=== PATIENT | male | born 1965 | race Caucasian/White ===

== ENCOUNTER 2019-01-17 10:23 | Inpatient (IN) | payer OTHER ==
[~2019-01-17] VITALS: Ht 167.6 cm; Wt 97.4 kg
[2019-01-17] VITALS (28 sets, daily range): BP systolic 102–153; BP diastolic 50–98; PULSE 58–76; RESP 10–19; Ht 167.6 cm; Wt 97.4 kg
[~2019-01-17 10:23] MED LIST: CEFAZOLIN 1 GM INJ ONE; SEVOFLURANE 15 MIN ONE
[2019-01-17] MEDS ORDERED: SURGIFOAM POWDER 1 GM KIT ONE (11:59)
[2019-01-17] MEDS ORDERED: GELATIN SIZE 100 SPONGE ONE (12:00)
[2019-01-17] MEDS ORDERED: THROMBIN (BOVINE) 5,000 UNIT VIAL TP ONE (12:00)
[2019-01-17] MEDS ORDERED: POLYMYXIN/BACITRACIN 1L IRRIG ONE (12:00)
[2019-01-17] MEDS ORDERED: BUPIVACAINE 0.5%/EPI (SDV) 30 ML INJ ONE (12:00)
--- NOTE | 2019-01-17 12:26 | PREAC ---
Date/Time of Note Date/Time of Note DATE: 01/17/19 TIME: 12:24 Anesthesia Eval and Record Evaluation Time Pre-Procedure Interview DATE: 01/17/19 TIME: 12:24 Age 53 Sex male NPO: 8 hrs Preoperative diagnosis C6-7 HNP Planned procedure Anterior cervical discectomy and fusion Past Medical History Past Medical History: Includes GI: Obesity Surgery & Anesthesia Issues No known issue Meds Anticoagulation: No Beta Ashley within 24 hr: No Reason Beta Ashley not given: Pt. not on B-Ashley No Active Prescriptions or Reported Meds Meds reviewed: Yes Allergies Coded Allergies: bee venom protein (honey bee) (Verified Allergy, Unknown, RASH HIVES SWELLING, 01/17/19) morphine (Verified Adverse Reaction, Unknown, ANXIETY, AGGITATED, 01/17/19) Allergies Reviewed: Yes Labs/Studies Labs Reviewed: Reviewed by anesthesiologist test: N/A Pre-procedure Exam Last vitals Vital Signs Date Temp Pulse Resp B/P (MAP) Pulse Ox O2 O2 Flow FiO2 Time Delivery Rate 01/17/19 99.1 76 16 153/98 98 11:44 (116) Airway: Adequate mouth opening Mallampati: Mallampati II Teeth: Normal Lung: Normal Heart: Normal ASA Physical Status ASA physical status: 2 Emergency: None Planned Anesthetic General/MAC: ETT Planned Pain Management Parenteral pain med Pre-operative Attestations Prior to commencing anesthesia and surgery, the patient was re-evaluated, there was verification of: *The patient's identity *The results of appropriate recent lab work and preoperative vital signs *The above evaluation not changing prior to induction *Anesthetic plan, risk benefits, alternative and complications discussed with patient/family; questions answered; patient/family understands, accepts and wishes to proceed. CHAU CARTER MD Jan 17, 2019 12:26
[2019-01-17] MEDS ORDERED: ROCURONIUM 50 MG INJ ONE ×3 (12:33→13:27)
[2019-01-17] MEDS ORDERED: SUCCINYLCHOLINE CHLORIDE 100 MG/5 ML SYG IV ONE (12:33)
[2019-01-17] MEDS ORDERED: PROPOFOL 20 ML ONE (12:33)
[2019-01-17] MEDS ORDERED: LIDOCAINE 2% (SDV) 5 ML INJ ONE (12:33)
[2019-01-17] MEDS ORDERED: GLYCOPYRROLATE 0.4 MG INJ ONE ×3 (12:33→14:38)
[2019-01-17] MEDS ORDERED: NEOSTIGMINE 3 MG/3 ML SYRINGE ONE ×2 (12:33→14:38)
[2019-01-17] MEDS ORDERED: MEPERIDINE 100 MG INJ ONE (12:33)
--- NOTE | 2019-01-17 12:57 | HPN ---
Date/Time of Note Date/Time of Note DATE: 01/17/19 TIME: 12:56 Interval H&P Admission Note Pt. seen H&P reviewed: No system changes DOMINIC DELVALLE PA-C Jan 17, 2019 12:57
[2019-01-17] MEDS ORDERED: LABETALOL HCL 20MG INJ ONE (13:27)
[2019-01-17] MEDS ORDERED: POLYMYXIN/BACITRACIN 1L IRRIG IRR ONE (13:38)
[2019-01-17] MEDS ORDERED: LABETALOL HCL 20MG INJ IV PRN (14:00)
[2019-01-17] MEDS ORDERED: METOCLOPRAMIDE 10 MG INJ IV PRN (14:00)
[2019-01-17] MEDS ORDERED: MIDAZOLAM 1 MG/ML 2 ML INJ IV PRN (14:00)
[2019-01-17] MEDS ORDERED: DIPHENHYDRAMINE 50 MG INJ IV PRN ×2 (14:00→15:30)
[2019-01-17] MEDS ORDERED: hydrALAzine 20 MG INJ IV PRN (14:00)
[2019-01-17] MEDS ORDERED: HYDROmorphONE 1 MG/5 ML IV SYRINGE IV PRN ×2 (14:00)
[2019-01-17] MEDS ORDERED: ONDANSETRON 4 MG INJ IV PRN ×2 (14:00→15:30)
[2019-01-17] MEDS ORDERED: FENTAnyl 50 MCG/ML VIAL IV PRN ×3 (14:00)
[2019-01-17] MEDS ORDERED: EPHEDrine SULFATE 50 MG/5 ML SYG IV PRN (14:00)
[2019-01-17] MEDS ORDERED: MEPERIDINE 25 MG INJ IV PRN (14:00)
--- NOTE | 2019-01-17 15:04 | SIPON ---
Date/Time of Note Date/Time of Note DATE: 01/17/19 TIME: 15:03 Operative Report Preoperative Diagnosis C6-7 stenosis Postoperative Diagnosis C6-7 stenosis Operation/Procedure Performed C6-7 disc arthroplasty Surgeon see signature line assistant drafter Juana Khanna Anesthesia: general Estimated blood loss: 10 - 50 ml's Transfusion Required none Specimen C6-7 disc Grafts/Implants Synthes Prodisc cervical Complications none TED KAHN MD Jan 17, 2019 15:04
--- NOTE | 2019-01-17 15:29 | PAC ---
Date/Time of Note Date/Time of Note DATE: 01/17/19 TIME: 15:29 Post-Anesthesia Notes Post-Anesthesia Note Last documented vital signs Vital Signs Date Temp Pulse Resp B/P (MAP) Pulse Ox O2 O2 Flow FiO2 Time Delivery Rate 01/17/19 98.1 15:22 01/17/19 74 17 119/82 100 Mask 15:10 (94) Activity: WNL Respiratory function: WNL Cardiovascular function: WNL Mental status: Baseline Pain reasonably controlled: Yes Hydration appropriate: Yes Nausea/Vomiting absent: Yes CHAU CARTER MD Jan 17, 2019 15:29
[2019-01-17] MEDS ORDERED: ACETAMINOPHEN 325 MG TAB PO PRN (15:30)
[2019-01-17] MEDS ORDERED: CARISOPRODOL 350 MG TAB PO PRN (15:30)
[2019-01-17] MEDS ORDERED: NALOXONE (0.4 MG/ML) INJ IV PRN (15:30)
[2019-01-17] MEDS ORDERED: AL HYDROX/MG HYDROX/SIMETH 30 ML CUP PO PRN (15:30)
[2019-01-17] MEDS ORDERED: DIPHENHYDRAMINE 25 MG CAP PO PRN (15:30)
[2019-01-17] MEDS ORDERED: BISACODYL 10 MG SUPP PR PRN (15:30)
[2019-01-17] MEDS ORDERED: ZOLPIDEM 5 MG TAB PO PRN (15:30)
[2019-01-17] MEDS ORDERED: HYDROmorphONE 0.5 MG/0.5 ML SYG IV PRN (15:30)
[2019-01-17] MEDS: CEFAZOLIN 1 GM/50 ML (PMX) 50 ML IVPB SCH (15:40)
[2019-01-17] MEDS: HYDROmorphONE 1 MG/5 ML IV SYRINGE IV PRN ×2 (15:49→16:38)
--- NOTE | 2019-01-17 16:39 | OPR ---
DATE OF OPERATION: 01/17/2019 PREOPERATIVE DIAGNOSIS: Right C6 to C7 disk/osteophyte complex with cervical radiculopathy. POSTOPERATIVE DIAGNOSIS: Right C6 to C7 disk/osteophyte complex with cervical radiculopathy. PROCEDURES: 1. C6 to C7 anterior cervical diskectomy and spinal cord decompression. 2. C6 to C7 cervical disk arthroplasty. 3. Use of operative microscope. 4. Use of C-arm fluoroscopy interpretation without radiologist present. 5. Intraoperative neuromonitoring. IMPLANTS: Synthes ProDisc cervical 5 extra large deep. PRIMARY SURGEON: Johan Wilburn MD MANAGER TECHNICAL SERVICES: Juana Khanna PA-C NEED FOR CHANNEL SPECIALIST: During this spinal surgical procedure, my academic affairs assistant was used to retract and protect the spinal nerves and dural sac. My academic affairs assistant also employed the suction catheters to ev acuate blood from the surgical field to improve visualization of the neural structures. The assistan t was medically necessary to facilitate the completion of the surgery in a safe and expeditious [facility] r. [facility] regulations, as well as hospital bylaws, preclude the use of non-licensed [facility] care personnel, such as operating room technicians, to perform these functions. FINDINGS: Neuromonitoring at the start of the case revealed right C6 and C7 amplitude down 40%. At the end the case, nerve signals returned to normal. The patient had a right-sided disk/osteophyte co mplex resulting in severe stenosis. ESTIMATED BLOOD LOSS: Less than 30 mL. DRAINS: None. SPECIMENS: C6 to C7 disk. COMPLICATIONS OF PROCEDURES: None. ANESTHESIOLOGIST: David Berry MD TYPE OF ANESTHESIA: General. INDICATIONS FOR PROCEDURE: This is a 53-year-old gentleman with right cervical radiculopathy in sett ing of right-sided stenosis at the C6 to C7 level. He failed nonoperative measures; therefore, I rec ommended that he undergo the above procedure. Preoperatively, we discussed risks, benefits and alter natives. He understood and wished to proceed. DESCRIPTION OF PROCEDURE IN DETAIL: The patient was identified in the preoperative holding area, gi en Ancef antibiotic, taken to the operating room, where he was successfully placed under general anes thesia. Neuromonitoring leads were placed. Sequential compressive devices were applied. Remote int raoperative neuromonitoring was performed by Dr. Lr from 11:58 until 15:00 to include SSEP, ME P and EMG performed by [employer]. The patient was in supine position. Towel rolls were place d behind the neck and between the shoulder blades. Neck was prepped and draped in usual sterile fash ion. Left-sided neck incision was made. I then incised the platysma in line with the skin incision. I then identified an interval between the sternocleidomastoid and strap muscles. I identified the anterior spine. I placed a spinal needle and took a lateral film to confirm that I was at the C6 to C7 level. I then placed Blum pins and made an annulotomy and distracted the disk space. I then pe rformed a radical diskectomy at the C6 to C7 level. Microscope was brought in. The patient has larg e posterior osteophyte particularly on the right side and therefore I used Kerrison punches to decomp ress the spinal cord and neural foramina bilaterally. Once this was done, nerve signals returned to normal. I placed the appropriate size trials and found the appropriate size graft height. I made th e keel cuts. This was all done under the microscope. Once this was done, I placed the appropriate s ize graft and impacted this in. Once the graft was in place, I took AP and lateral images and I was happy with placement of the hardware and alignment of the spine. At this point, microscope was taken off the field. The Blum pins were removed and bone wax was placed. The wound was irrigated. Hem ostasis achieved. Wound was dry and therefore, I elected not to place a drain. I then proceeded to close the wound in layers. I closed the platysma with #2-0 Vicryl stitch. I closed subcutaneous tis nathen with a 3-0 Vicryl stitch. Dermabond was then applied. The patient was awakened from anesthesia and taken to the recovery room in stable condition. Lap, sponge and needle counts were correct x2. There are no apparent complications during the procedure. The patient will be admitted to the orthopedic barr for routine postoperative care to include pain co ntrol, neurovascular checks, antibiotics and physical therapy. Dictated By: JOHAN WILBURN MD BB/WILLY Conf#: [id number] DID#: [id number] CC: DUKE FLEMING MD;*EndCC*
[2019-01-17] MEDS: CEPASTAT LOZENGE MT PRN ×2 (17:54→20:25)
--- NOTE | 2019-01-17 18:23 | CONS ---
Assessment/Plan Assessment/Plan Assessment/Plan (Daily) Consult dictated Post op cx spine surgery with hx labile hypertension not requiring meds. Consultation Date/Type/Reason Admit Date/Time Jan 17, 2019 at 10:23 Date/Time of Note DATE: 01/17/19 TIME: 18:22 Past Medical History Home Meds No Active Prescriptions or Reported Meds Medications Current Medications Potassium Chloride/Dextrose/ Sod Cl 1,000 ml @ 100 mls/hr Q10H IV ; Start 01/17/19 at 15:05 Tramadol HCl (Ultram) 50 mg Q4H PRN PO .PAIN 1-5; Start 01/17/19 at 15:30 Tramadol HCl (Ultram) 100 mg Q4H PRN PO .PAIN 6-10; Start 01/17/19 at 15:30 Hydromorphone HCl (Dilaudid) 0.2 mg Q1H PRN IV .BREAKTHROUGH PAIN; Start 01/17/19 at 15:30 Cefazolin Sodium 50 ml @ 100 mls/hr Q8H IVPB Last administered on 01/17/19at 15:40; Admin Dose 100 MLS/HR; Start 01/17/19 at 15:30; Stop 01/18/19 at 07:59 Zolpidem Tartrate (Ambien) 5 mg HS PRN PO .INSOMNIA; Start 01/17/19 at 15:30 Ondansetron HCl (Zofran Inj) 4 mg Q6H PRN IV NAUSEA/VOMITING; Start 01/17/19 at 15:30 Bisacodyl (Dulcolax Supp) 10 mg DAILY PRN CA .CONSTIPATION; Start 01/17/19 at 15:30 Docusate Sodium (Colace) 100 mg BID PO ; Start 01/17/19 at 21:00 Pantoprazole (Protonix Iv) 40 mg DAILY@06 IV ; Start 01/18/19 at 06:00 Al Hydrox/Mg Hydrox/Simethicone (Mag-Al Plus) 15 ml Q6H PRN PO .CONSTIPATION/DYSPEPSIA; Start 01/17/19 at 15:30 Acetaminophen (Tylenol Tab) 650 mg Q4H PRN PO CANO OR TEMP GREATER THAN 101.3F; Start 01/17/19 at 15:30 Carisoprodol (Soma) 350 mg TID PRN PO .MUSCLE SPASMS; Start 01/17/19 at 15:30 Phenol (Cepastat Lozenge) 1 lozenge PRN PRN MT .SORE THROAT Last administered on 01/17/19at 17:54; Admin Dose 1 LOZENGE; Start 01/17/19 at 15:30 Diphenhydramine HCl (Benadryl) 25 mg Q6H PRN PO .ITCHING; Start 01/17/19 at 15:30 Diphenhydramine HCl (Benadryl) 25 mg Q6H PRN IV .ITCHING; Start 01/17/19 at 15:30 Naloxone HCl (Narcan) 0.2 mg Q2M PRN IV .RR 8 BREATHS/MIN OR LESS; Start 01/17/19 at 15:30 Allergies: Coded Allergies: bee venom protein (honey bee) (Verified Allergy, Unknown, RASH HIVES SWELLING, 01/17/19) morphine (Verified Adverse Reaction, Unknown, ANXIETY, AGGITATED, 01/17/19) Social History Smoking Status: Never smoker Exam/Review of Systems Exam Vitals Vital Signs Date Temp Pulse Resp B/P (MAP) Pulse Ox O2 O2 Flow FiO2 Time Delivery Rate 01/17/19 58 11 114/81 98 Room Air 16:51 (92) 01/17/19 98.1 16:31 01/17/19 2.0 16:01 Medications Medication Current Medications Potassium Chloride/Dextrose/ Sod Cl 1,000 ml @ 100 mls/hr Q10H IV ; Start 01/17/19 at 15:05 Tramadol HCl (Ultram) 50 mg Q4H PRN PO .PAIN 1-5; Start 01/17/19 at 15:30 Tramadol HCl (Ultram) 100 mg Q4H PRN PO .PAIN 6-10; Start 01/17/19 at 15:30 Hydromorphone HCl (Dilaudid) 0.2 mg Q1H PRN IV .BREAKTHROUGH PAIN; Start 01/17/19 at 15:30 Cefazolin Sodium 50 ml @ 100 mls/hr Q8H IVPB Last administered on 01/17/19at 15:40; Admin Dose 100 MLS/HR; Start 01/17/19 at 15:30; Stop 01/18/19 at 07:59 Zolpidem Tartrate (Ambien) 5 mg HS PRN PO .INSOMNIA; Start 01/17/19 at 15:30 Ondansetron HCl (Zofran Inj) 4 mg Q6H PRN IV NAUSEA/VOMITING; Start 01/17/19 at 15:30 Bisacodyl (Dulcolax Supp) 10 mg DAILY PRN CA .CONSTIPATION; Start 01/17/19 at 15:30 Docusate Sodium (Colace) 100 mg BID PO ; Start 01/17/19 at 21:00 Pantoprazole (Protonix Iv) 40 mg DAILY@06 IV ; Start 01/18/19 at 06:00 Al Hydrox/Mg Hydrox/Simethicone (Mag-Al Plus) 15 ml Q6H PRN PO .CONSTIPATION/DYSPEPSIA; Start 01/17/19 at 15:30 Acetaminophen (Tylenol Tab) 650 mg Q4H PRN PO CANO OR TEMP GREATER THAN 101.3F; Start 01/17/19 at 15:30 Carisoprodol (Soma) 350 mg TID PRN PO .MUSCLE SPASMS; Start 01/17/19 at 15:30 Phenol (Cepastat Lozenge) 1 lozenge PRN PRN MT .SORE THROAT Last administered on 01/17/19at 17:54; Admin Dose 1 LOZENGE; Start 01/17/19 at 15:30 Diphenhydramine HCl (Benadryl) 25 mg Q6H PRN PO .ITCHING; Start 01/17/19 at 15:30 Diphenhydramine HCl (Benadryl) 25 mg Q6H PRN IV .ITCHING; Start 01/17/19 at 15:30 Naloxone HCl (Narcan) 0.2 mg Q2M PRN IV .RR 8 BREATHS/MIN OR LESS; Start 01/17/19 at 15:30 DUKE FLEMING MD Jan 17, 2019 18:23
--- NOTE | 2019-01-17 19:54 | CONS ---
DATE OF ADMISSION: 01/17/2019 DATE OF CONSULTATION: 01/17/2019 TYPE OF CONSULTATION: Postoperative medical. Thank you very much for allowing me to evaluate this 53-year-old male who just underwent cervical spi ne decompression. HISTORICAL EVENTS: As you well know, this patient has had pain related to cervical spine degenerativ e arthritis and related nerve compression and underwent surgery earlier today. Postoperatively, he h as had some mild difficulty swallowing, admits to a slight sore throat, but denies cough, wheezing, s hortness of breath, chest pain, nausea, vomiting or abdominal pain. PAST MEDICAL HISTORY: Includes: 1. Fracture of the radius and ulna requiring surgery. 2. Left shoulder arthroscopic surgery. 3. Prior tonsillectomy. 4. Absence of diabetes, hypertension and coronary artery disease. 5. Labile hypertension. ALLERGIES: TO BE REVIEWED. MEDICATIONS: None. PHYSICAL EXAMINATION: GENERAL: [place] male in no acute distress. VITAL SIGNS: BP 128/80, pulse 72, respirations 20, he was afebrile. HEENT: Eyes: Extraocular muscles were full. Nose, mouth and throat are normal. NECK: Scar noted. No adenopathy. LUNGS: Clear. HEART: Rhythm was regular. ABDOMEN: Nontender. Liver and spleen were not palpable. EXTREMITIES: No edema, no calf tenderness. IMPRESSION: 1. Stable postoperative cervical spine surgery. 2. We will follow daily for signs and symptoms of thromboembolic disease. Dictated By: DUKE FLEMING MD MR/NTS Conf#: [id number] DID#: [id number] CC: TED KAHN MD;*EndCC*
[2019-01-17] MEDS: D5W-0.45 NACL + KCL 20 MEQ 1,000 ML IV SCH (20:19)
[2019-01-17] MEDS: DOCUSATE SODIUM 100 MG CAP PO SCH (20:21)
[2019-01-17] MEDS: traMADol 50 MG TAB PO PRN (20:25)
[2019-01-18] MEDS: CEFAZOLIN 1 GM/50 ML (PMX) 50 ML IVPB SCH ×2 (00:01→08:17)
[2019-01-18] MEDS: D5W-0.45 NACL + KCL 20 MEQ 1,000 ML IV SCH ×3 (01:05→20:07)
[2019-01-18] MEDS: traMADol 50 MG TAB PO PRN ×2 (05:58→22:05)
[2019-01-18] MEDS ORDERED: PANTOPRAZOLE 40 MG INJ IV SCH (06:00)
[2019-01-18 08:00] VITALS: BP 130/95; PULSE 86; RESP 18
--- NOTE | 2019-01-18 08:46 | CONS ---
Assessment/Plan Assessment/Plan Assessment/Plan (Daily) 1. Doing well post op cervical spine surgery 2. Sl diff voiding, will check post void residual 3. BP inc, will add catapres Consultation Date/Type/Reason Admit Date/Time Jan 17, 2019 at 10:23 Initial Consult Date Date/Time of Note DATE: 01/18/19 TIME: 08:44 Detailed Summary ENT: other (sl diff swallowing, neck is "sore") Respiratory: shortness of breath; No cough Cardiovascular: no complaints Gastrointestinal: no complaints Genitourinary: other (sl diff voiding without dysuria) Exam/Review of Systems Exam Vitals Vital Signs Date Temp Pulse Resp B/P (MAP) Pulse Ox O2 O2 Flow FiO2 Time Delivery Rate 01/17/19 98.3 69 19 147/91 96 Room Air 23:51 (109) 01/17/19 2.0 16:01 Intake and Output 01/17/19 01/17/19 01/18/19 1515:00 23:00 07:00 IntakeIntake Total 940 ml 850 ml OutputOutput Total 20 ml BalanceBalance 920 ml 850 ml Neck: No jvd Respiratory: clear to auscultation Cardiovascular: regular rate and rhythm Gastrointestinal: soft; No distended, No tender Extremities: No edema Results Result Diagram: 01/18/19 0443 01/18/19 0443 Results 24hrs Laboratory Tests Test 01/18/19 04:43 01/18/19 07:32 White Blood Count 9.3 Red Blood Count 4.49 L Hemoglobin 15.0 Hematocrit 43.1 Mean Corpuscular Volume 96.0 Mean Corpuscular Hemoglobin 33.4 H Mean Corpuscular Hemoglobin Concent 34.8 Red Cell Distribution Width 11.6 Platelet Count 259 Mean Platelet Volume 10.1 Immature Granulocytes % 0.400 Neutrophils % 64.4 Lymphocytes % 24.1 Monocytes % 10.7 Eosinophils % 0.1 Basophils % 0.3 Nucleated Red Blood Cells % 0.0 Immature Granulocytes # 0.040 H Neutrophils # 6.0 Lymphocytes # 2.2 Monocytes # 1.0 H Eosinophils # 0.0 Basophils # 0.0 Nucleated Red Blood Cells # 0.0 Sodium Level 138 Potassium Level 4.6 Chloride Level 103 Carbon Dioxide Level 26 Anion Gap 9 Blood Urea Nitrogen 9 Creatinine 0.91 Est Glomerular Filtrat Rate mL/min > 60 Glucose Level 117 Calcium Level 8.9 Magnesium Level 2.0 Lab Scanned Report REFERENCE LAB Medications Medication Current Medications Potassium Chloride/Dextrose/ Sod Cl 1,000 ml @ 100 mls/hr Q10H IV Last administered on 01/18/19at 08:17; Admin Dose 100 MLS/HR; Start 01/17/19 at 15:05 Tramadol HCl (Ultram) 50 mg Q4H PRN PO .PAIN 1-5; Start 01/17/19 at 15:30 Tramadol HCl (Ultram) 100 mg Q4H PRN PO .PAIN 6-10 Last administered on 01/18/19at 05:58; Admin Dose 100 MG; Start 01/17/19 at 15:30 Hydromorphone HCl (Dilaudid) 0.2 mg Q1H PRN IV .BREAKTHROUGH PAIN; Start 01/17/19 at 15:30 Zolpidem Tartrate (Ambien) 5 mg HS PRN PO .INSOMNIA; Start 01/17/19 at 15:30 Ondansetron HCl (Zofran Inj) 4 mg Q6H PRN IV NAUSEA/VOMITING; Start 01/17/19 at 15:30 Bisacodyl (Dulcolax Supp) 10 mg DAILY PRN NE .CONSTIPATION; Start 01/17/19 at 15:30 Docusate Sodium (Colace) 100 mg BID PO Last administered on 01/17/19at 20:21; Admin Dose 100 MG; Start 01/17/19 at 21:00 Pantoprazole (Protonix Iv) 40 mg DAILY@06 IV Last administered on 01/18/19at 05:50; Admin Dose 40 MG; Start 01/18/19 at 06:00 Al Hydrox/Mg Hydrox/Simethicone (Mag-Al Plus) 15 ml Q6H PRN PO .CONSTIPATION/DYSPEPSIA; Start 01/17/19 at 15:30 Acetaminophen (Tylenol Tab) 650 mg Q4H PRN PO CANO OR TEMP GREATER THAN 101.3F; Start 01/17/19 at 15:30 Carisoprodol (Soma) 350 mg TID PRN PO .MUSCLE SPASMS Last administered on 01/17/19at 20:20; Admin Dose 350 MG; Start 01/17/19 at 15:30 Phenol (Cepastat Lozenge) 1 lozenge PRN PRN MT .SORE THROAT Last administered on 01/17/19at 20:25; Admin Dose 1 LOZENGE; Start 01/17/19 at 15:30 Diphenhydramine HCl (Benadryl) 25 mg Q6H PRN PO .ITCHING; Start 01/17/19 at 15:30 Diphenhydramine HCl (Benadryl) 25 mg Q6H PRN IV .ITCHING; Start 01/17/19 at 15:30 Naloxone HCl (Narcan) 0.2 mg Q2M PRN IV .RR 8 BREATHS/MIN OR LESS; Start 01/17/19 at 15:30 DUKE FLEMING MD Jan 18, 2019 08:46
[2019-01-18] MEDS: DOCUSATE SODIUM 100 MG CAP PO SCH ×2 (09:42→20:06)
[2019-01-18] MEDS ORDERED: TAMSULOSIN (SR) 0.4 MG CAP PO ONE (10:00)
--- NOTE | 2019-01-18 12:38 | DS ---
Date/Time of Note Date/Time of Note DATE: 01/18/19 TIME: 12:37 Discharge Summary Admission/Discharge Info Admit Date/Time Jan 17, 2019 at 10:23 Discharge Date/Time January 18 Discharge Diagnosis Cervical disc replacement Patient Condition: Good Procedures Cervical disc arthroplasty Hospital Course Patient was admitted to the orthopedic barr after undergoing a cervical disc arthroplasty. His postoperative course is uncomplicated. By postoperative day 1 he was deemed stable for discharge with follow-up arranged with the undersigned. Patient had urinary issues in the hospital which is unchanged from prior to admission. Home Meds No Active Prescriptions or Reported Meds Primary Care Provider Not On Staff Doctor Pending Labs Laboratory Tests Test 01/18/19 04:43 01/18/19 07:32 White Blood Count 9.3 10^3/ul (4.8-10.8) Red Blood Count 4.49 10^6/ul (4.70-6.10) Hemoglobin 15.0 g/dl (14.0-18.0) Hematocrit 43.1 % (42.0-52.0) Mean Corpuscular Volume 96.0 fl (82.0-101.0) Mean Corpuscular Hemoglobin 33.4 pg (29.0-33.0) Mean Corpuscular 34.8 g/dl (32.0-37.0) Hemoglobin Concent Red Cell Distribution Width 11.6 % (11.5-14.5) Platelet Count 259 10^3/UL (140-415) Mean Platelet Volume 10.1 fl (7.4-10.4) Immature Granulocytes % 0.400 % (0.001-0.429) Neutrophils % 64.4 % (39.0-77.0) Lymphocytes % 24.1 % (15.0-51.0) Monocytes % 10.7 % (0.0-11.0) Eosinophils % 0.1 % (0.0-7.0) Basophils % 0.3 % (0.0-2.0) Nucleated Red Blood Cells % 0.0 /100WBC (0.0-0.0) Immature Granulocytes # 0.040 10^3/ul (0.0-0.031) Neutrophils # 6.0 10^3/ul (1.6-7.5) Lymphocytes # 2.2 10^3/ul (0.8-2.9) Monocytes # 1.0 10^3/ul (0.3-0.9) Eosinophils # 0.0 10^3/ul (0.0-0.5) Basophils # 0.0 10^3/ul (0.0-0.1) Nucleated Red Blood Cells # 0.0 10^3/ul (0.0-0.0) Sodium Level 138 mmol/L (135-144) Potassium Level 4.6 mmol/L (3.5-5.1) Chloride Level 103 mmol/L (97-110) Carbon Dioxide Level 26 mmol/L (21-31) Anion Gap 9 (5-13) Blood Urea Nitrogen 9 mg/dl (7-20) Creatinine 0.91 mg/dl (0.61-1.24) Est Glomerular Filtrat > 60 mL/min (>60) Rate mL/min Glucose Level 117 mg/dl (70-220) Calcium Level 8.9 mg/dl (8.4-10.2) Magnesium Level 2.0 mg/dl (1.7-2.5) Lab Scanned Report REFERENCE LAB [id number] TED KAHN MD Jan 18, 2019 12:38
[2019-01-18 13:20] VITALS: BP 126/80; PULSE 110; RESP 18
[2019-01-18 19:36] VITALS: BP 125/70; PULSE 92; RESP 18
[2019-01-18 20:24] VITALS: BP 125/83; PULSE 103; RESP 18
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
[2019-01-19] MEDS: PANTOPRAZOLE (EC) 40 MG TAB PO SCH (05:13)
[2019-01-19] MEDS: D5W-0.45 NACL + KCL 20 MEQ 1,000 ML IV SCH ×2 (05:39→17:05)
[2019-01-19 07:37] VITALS: BP 113/62; PULSE 82; RESP 18
--- NOTE | 2019-01-19 08:16 | CONS ---
Assessment/Plan Assessment/Plan Assessment/Plan (Daily) 1. Bladder dysfx, await urol follow up, with residual volumes >600cc, PSA added to labs. 2. Post op cx spine surgery, doing well 3. Labs rev Consultation Date/Type/Reason Admit Date/Time Jan 17, 2019 at 10:23 Initial Consult Date Requesting Provider: DUKE FLEMING MD Date/Time of Note DATE: 01/19/19 TIME: 08:14 Detailed Summary Respiratory: cough, shortness of breath Cardiovascular: No chest pain Musculoskeletal: neck pain (mild without diff swallowing), other (prior to admit freq urination at times small volumes and min nocturia without back pain) Exam/Review of Systems Exam Vitals Vital Signs Date Temp Pulse Resp B/P (MAP) Pulse Ox O2 O2 Flow FiO2 Time Delivery Rate 01/19/19 99.5 82 18 113/62 100 Room Air 07:37 (79) 01/17/19 2.0 16:01 Intake and Output 01/18/19 01/18/19 01/19/19 1515:00 23:00 07:00 IntakeIntake Total 570 ml 1250 ml 200 ml OutputOutput Total 850 ml 600 ml BalanceBalance 570 ml 400 ml -400 ml Neck: No jvd Respiratory: clear to auscultation Cardiovascular: regular rate and rhythm Gastrointestinal: soft Extremities: No edema Results Result Diagram: 01/19/19 0435 01/19/19 0435 Results 24hrs Laboratory Tests Test 01/18/19 16:15 01/19/19 04:35 Urine Color YELLOW Urine Clarity CLEAR Urine pH 5.0 Urine Specific [place] 1.013 Urine Ketones NEGATIVE Urine Nitrite NEGATIVE Urine Bilirubin NEGATIVE Urine Urobilinogen NEGATIVE Urine Leukocyte Esterase NEGATIVE Urine Hemoglobin NEGATIVE Urine Glucose NEGATIVE Urine Total Protein NEGATIVE White Blood Count 9.1 Red Blood Count 4.13 L Hemoglobin 13.8 L Hematocrit 40.0 L Mean Corpuscular Volume 96.9 Mean Corpuscular Hemoglobin 33.4 H Mean Corpuscular Hemoglobin Concent 34.5 Red Cell Distribution Width 11.6 Platelet Count 233 Mean Platelet Volume 9.9 Immature Granulocytes % 0.400 Neutrophils % 50.1 Lymphocytes % 35.2 Monocytes % 13.3 H Eosinophils % 0.7 Basophils % 0.3 Nucleated Red Blood Cells % 0.0 Immature Granulocytes # 0.040 H Neutrophils # 4.6 Lymphocytes # 3.2 H Monocytes # 1.2 H Eosinophils # 0.1 Basophils # 0.0 Nucleated Red Blood Cells # 0.0 Sodium Level 137 Potassium Level 4.3 Chloride Level 102 Carbon Dioxide Level 26 Anion Gap 9 Blood Urea Nitrogen 12 Creatinine 1.01 Est Glomerular Filtrat Rate mL/min > 60 Glucose Level 108 Calcium Level 8.7 Phosphorus Level 3.2 Magnesium Level 2.2 Medications Medication Current Medications Potassium Chloride/Dextrose/ Sod Cl 1,000 ml @ 100 mls/hr Q10H IV Last administered on 01/18/19at 08:17; Admin Dose 100 MLS/HR; Start 01/17/19 at 15:05 Tramadol HCl (Ultram) 50 mg Q4H PRN PO .PAIN 1-5; Start 01/17/19 at 15:30 Tramadol HCl (Ultram) 100 mg Q4H PRN PO .PAIN 6-10 Last administered on 01/18/19at 22:05; Admin Dose 100 MG; Start 01/17/19 at 15:30 Hydromorphone HCl (Dilaudid) 0.2 mg Q1H PRN IV .BREAKTHROUGH PAIN; Start 01/17/19 at 15:30 Zolpidem Tartrate (Ambien) 5 mg HS PRN PO .INSOMNIA; Start 01/17/19 at 15:30 Ondansetron HCl (Zofran Inj) 4 mg Q6H PRN IV NAUSEA/VOMITING; Start 01/17/19 at 15:30 Bisacodyl (Dulcolax Supp) 10 mg DAILY PRN [place] .CONSTIPATION; Start 01/17/19 at 15:30 Docusate Sodium (Colace) 100 mg BID PO Last administered on 01/18/19at 20:06; Admin Dose 100 MG; Start 01/17/19 at 21:00 Al Hydrox/Mg Hydrox/Simethicone (Mag-Al Plus) 15 ml Q6H PRN PO .CONSTIPATION/DYSPEPSIA; Start 01/17/19 at 15:30 Acetaminophen (Tylenol Tab) 650 mg Q4H PRN PO CANO OR TEMP GREATER THAN 101.3F; Start 01/17/19 at 15:30 Carisoprodol (Soma) 350 mg TID PRN PO .MUSCLE SPASMS Last administered on 01/17/19at 20:20; Admin Dose 350 MG; Start 01/17/19 at 15:30 Phenol (Cepastat Lozenge) 1 lozenge PRN PRN [place] .SORE THROAT Last administered on 01/17/19at 20:25; Admin Dose 1 LOZENGE; Start 01/17/19 at 15:30 Diphenhydramine HCl (Benadryl) 25 mg Q6H PRN PO .ITCHING; Start 01/17/19 at 15:30 Diphenhydramine HCl (Benadryl) 25 mg Q6H PRN IV .ITCHING; Start 01/17/19 at 15:30 Naloxone HCl (Narcan) 0.2 mg Q2M PRN IV .RR 8 BREATHS/MIN OR LESS; Start 01/17/19 at 15:30 Clonidine (Catapres) 0.1 mg TID PO Last administered on 01/18/19at 20:06; Admin Dose 0.1 MG; Start 01/18/19 at 09:30 Pantoprazole (Protonix Tab) 40 mg DAILY@06 PO ; Start 01/19/19 at 06:00 Bethanechol Chloride (Urecholine) 10 mg TID PO ; Start 01/19/19 at 09:00 DUKE FLEMING MD Jan 19, 2019 08:16
[2019-01-19] MEDS: BETHANECHOL 10 MG TAB PO SCH ×3 (08:19→20:37)
[2019-01-19] MEDS: DOCUSATE SODIUM 100 MG CAP PO SCH ×2 (08:19→20:37)
[2019-01-19] MEDS: traMADol 50 MG TAB PO PRN ×2 (08:23→20:37)
--- NOTE | 2019-01-19 09:48 | PN ---
Date/Time of Note Date/Time of Note DATE: 01/19/19 TIME: 09:47 Assessment/Plan Lines/Catheters IV Catheter Type (from Nrsg): Saline Lock Assessment/Plan Assessment/Plan POD #2 s/p cervical disc replacement order cervical collar was not discharged due to urinary retention - per urologist Subjective 24 Hr Interval Summary POD #2 s/p cervical disc replacement doing well - notes improvement in neck pain stable for D/C from ortho perspective cannot be D/C due to urinary issues Exam/Review of Systems Vital Signs Vitals Vital Signs Date Temp Pulse Resp B/P (MAP) Pulse Ox O2 O2 Flow FiO2 Time Delivery Rate 01/19/19 99.5 82 18 113/62 100 Room Air 07:37 (79) 01/17/19 2.0 16:01 Intake and Output 01/18/19 01/18/19 01/19/19 1515:00 23:00 07:00 IntakeIntake Total 570 ml 1250 ml 200 ml OutputOutput Total 850 ml 600 ml BalanceBalance 570 ml 400 ml -400 ml Exam Free Text/Dictation AOx3 incision C/D/I exam unchanged Results Result Diagram: 01/19/19 0435 01/19/19 0435 DOMINIC DELVALLE PA-C Jan 19, 2019 09:48
[2019-01-19 14:14] VITALS: BP 110/70; PULSE 77; RESP 18
[2019-01-19 19:15] VITALS: BP 143/77; PULSE 89; RESP 18
--- NOTE | 2019-01-19 20:52 | CONS ---
Consult Date/Type/Reason Admit Date/Time Jan 17, 2019 at 10:23 Initial Consult Date 01/18/19 Type of Consultation: Urology Reason for Consultation Urinary retention Requesting Provider: DUKE FLEMING MD Date/Time of Note DATE: 01/19/19 TIME: 20:48 Subjective Patient is feeling better. He has ambulated more today and he is voiding better with a stronger stream. Objective Vitals Vital Signs Date Temp Pulse Resp B/P (MAP) Pulse Ox O2 O2 Flow FiO2 Time Delivery Rate 01/19/19 98.0 77 18 110/70 99 Room Air 14:14 (83) 01/17/19 2.0 16:01 Intake and Output 01/18/19 01/18/19 01/19/19 1515:00 23:00 07:00 IntakeIntake Total 570 ml 1250 ml 200 ml OutputOutput Total 850 ml 600 ml BalanceBalance 570 ml 400 ml -400 ml Exam He was voiding 150-300 mL. He needed to be catheterized one around 2 PM today. About 550 mL drained out. He has been voiding after that between 150-200 mL and the postvoid residual has been less than 300 mL therefore no straight catheterization has been done. He is on Urecholine 10 mg 3 times a day. Results/Medications Result Diagram: 01/19/19 0435 01/19/19 0435 Results 24 hrs Laboratory Tests Test 01/19/19 04:31 01/19/19 04:35 Prostate Specific Antigen 0.4 White Blood Count 9.1 Red Blood Count 4.13 L Hemoglobin 13.8 L Hematocrit 40.0 L Mean Corpuscular Volume 96.9 Mean Corpuscular Hemoglobin 33.4 H Mean Corpuscular Hemoglobin Concent 34.5 Red Cell Distribution Width 11.6 Platelet Count 233 Mean Platelet Volume 9.9 Immature Granulocytes % 0.400 Neutrophils % 50.1 Lymphocytes % 35.2 Monocytes % 13.3 H Eosinophils % 0.7 Basophils % 0.3 Nucleated Red Blood Cells % 0.0 Immature Granulocytes # 0.040 H Neutrophils # 4.6 Lymphocytes # 3.2 H Monocytes # 1.2 H Eosinophils # 0.1 Basophils # 0.0 Nucleated Red Blood Cells # 0.0 Sodium Level 137 Potassium Level 4.3 Chloride Level 102 Carbon Dioxide Level 26 Anion Gap 9 Blood Urea Nitrogen 12 Creatinine 1.01 Est Glomerular Filtrat Rate mL/min > 60 Glucose Level 108 Calcium Level 8.7 Phosphorus Level 3.2 Magnesium Level 2.2 Home Meds No Active Prescriptions or Reported Meds Medications Current Medications Potassium Chloride/Dextrose/ Sod Cl 1,000 ml @ 100 mls/hr Q10H IV Last administered on 01/18/19 08:17; Admin Dose 100 MLS/HR; Start 01/17/19 at 15:05 Tramadol HCl (Ultram) 50 mg Q4H PRN PO .PAIN 1-5 Last administered on 01/19/19 20:37; Admin Dose 50 MG; Start 01/17/19 at 15:30 Tramadol HCl (Ultram) 100 mg Q4H PRN PO .PAIN 6-10 Last administered on 01/19/19 08:23; Admin Dose 100 MG; Start 01/17/19 at 15:30 Hydromorphone HCl (Dilaudid) 0.2 mg Q1H PRN IV .BREAKTHROUGH PAIN; Start 01/17/19 at 15:30 Zolpidem Tartrate (Ambien) 5 mg HS PRN PO .INSOMNIA; Start 01/17/19 at 15:30 Ondansetron HCl (Zofran Inj) 4 mg Q6H PRN IV NAUSEA/VOMITING; Start 01/17/19 at 15:30 Bisacodyl (Dulcolax Supp) 10 mg DAILY PRN [place] .CONSTIPATION; Start 01/17/19 at 15:30 Docusate Sodium (Colace) 100 mg BID PO Last administered on 01/19/19 20:37; Admin Dose 100 MG; Start 01/17/19 at 21:00 Al Hydrox/Mg Hydrox/Simethicone (Mag-Al Plus) 15 ml Q6H PRN PO .CONST IPATION/DYSPEPSIA; Start 01/17/19 at 15:30 Acetaminophen (Tylenol Tab) 650 mg Q4H PRN PO CANO OR TEMP GREATER THAN 101.3F; Start 01/17/19 at 15:30 Carisoprodol (Soma) 350 mg TID PRN PO .MUSCLE SPASMS Last administered on 01/17/19 20:20; Admin Dose 350 MG; Start 01/17/19 at 15:30 Phenol (Cepastat Lozenge) 1 lozenge PRN PRN [place] .SORE THROAT Last administered on 4/1/19at 20:25; Admin Dose 1 LOZENGE; Start 01/17/19 at 15:30 Diphenhydramine HCl (Benadryl) 25 mg Q6H PRN PO .ITCHING; Start 01/17/19 at 15:3 0 Diphenhydramine HCl (Benadryl) 25 mg Q6H PRN IV .ITCHING; Start 01/17/19 at 15:30 Naloxone HCl (Narcan) 0.2 mg Q2M PRN IV .RR 8 BREATHS/MIN OR LESS; Start 01/17/19 at 15:30 Clonidine (Catapres) 0.1 mg TID PO Last administered on 01/19/19at 20:37; Admin Dose 0.1 MG; Start 01/18/19 at 09:30 Pantoprazole (Protonix Tab) 40 mg DAILY@06 PO ; Start 01/19/19 at 06:00 Bethanechol Chloride (Urecholine) 10 mg TID PO Last administered on 01/19/19at 20:37; Admin Dose 10 MG; Start 01/19/19 at 09:00 Assessment/Plan Hospital Course (Demo Recall) 53-year-old male underwent surgery on his cervical spine on 01/17/2019. He was having difficulty urinating postop and this afternoon he was catheterized for about 650 mL. And a urological consultation was requested. The patient has voided twice after that but small amount ,about 150 mL each time. The patient was given 1 dose of tamsulosin earlier. He states prior to his surgery he usually has nocturia once a night and during the day he urinates every 4-5 hours. His urinary stream is medium. He denies any dysuria and no history of gross hematuria and he usually feels he does empty his bladder. I did check his postvoid residual and he had over 550 mL and then I did straight cath on him and 700 mL drained. On the rectal exam his prostate did not feel large. His urinary retention is most likely secondary to be postop effect of pain medication and anesthesia as well as could be from his neurological condition. Patient has been voiding better today and required once straight catheterization around 2 PM. After that he has been voiding 150-200 mL each time and he describes his urinary stream as strong. I will increase his Urecholine to 25 mg 3 times a day from 10 mg. MARYAM CALIX MD Jan 19, 2019 20:52
[2019-01-19] MEDS: BETHANECHOL 25 MG TAB PO SCH (21:52)
[2019-01-20 00:27] VITALS: BP 115/67; PULSE 73; RESP 18
[2019-01-20] MEDS: D5W-0.45 NACL + KCL 20 MEQ 1,000 ML IV SCH (02:18)
[2019-01-20] MEDS: PANTOPRAZOLE (EC) 40 MG TAB PO SCH (06:19)
[2019-01-20] MEDS: traMADol 50 MG TAB PO PRN (06:24)
--- NOTE | 2019-01-20 07:50 | PN ---
Date/Time of Note Date/Time of Note DATE: 01/20/19 TIME: 07:50 Assessment/Plan Lines/Catheters IV Catheter Type (from Nrsg): no iv access Angel in Place (from Nrsg): No Assessment/Plan Chief Complaint/Hosp Course Patient was admitted to the orthopedic barr after undergoing a cervical disc arthroplasty. His postoperative course is uncomplicated. By postoperative day 1 he was deemed stable for discharge with follow-up arranged with the undersigned. Patient had urinary issues in the hospital which is unchanged from prior to admission. Assessment/Plan Patient is doing well from a surgical standpoint. We are still awaiting for urology clearance for discharge. Subjective 24 Hr Interval Summary Minimal neck pain Exam/Review of Systems Vital Signs Vitals Vital Signs Date Temp Pulse Resp B/P (MAP) Pulse Ox O2 O2 Flow FiO2 Time Delivery Rate 01/20/19 98.0 73 18 115/67 93 00:27 (83) 01/19/19 Room Air 14:14 01/17/19 2.0 16:01 Intake and Output 01/19/19 01/19/19 01/20/19 1515:00 23:00 07:00 IntakeIntake Total 1200 ml 2650 ml 350 ml OutputOutput Total 1350 ml 2856 ml 1518 ml BalanceBalance -150 ml -206 ml -1168 ml Exam Free Text/Dictation Upper extremity neuro intact Results Result Diagram: 01/19/19 0435 01/19/19 0435 TED KAHN MD Jan 20, 2019 07:50
--- NOTE | 2019-01-20 08:08 | CONS ---
Assessment/Plan Assessment/Plan Assessment/Plan (Daily) 1. Bladder dysfx is better, with post void residuals<200 cc, I left rx for flomax and urecholine in the chart. Urol to make final rec and follow as OP and ordered flomax today 2. Doing well post op cx spine surgery, rev with ortho Consultation Date/Type/Reason Admit Date/Time Jan 17, 2019 at 10:23 Initial Consult Date Requesting Provider: DUKE FLEMING MD Date/Time of Note DATE: 01/20/19 TIME: 08:05 Detailed Summary ENT: other (sl sore throat and diff swallowing) Respiratory: No cough, No shortness of breath Cardiovascular: no complaints Gastrointestinal: no complaints Genitourinary: other (stream is slow) Exam/Review of Systems Exam Vitals Vital Signs Date Temp Pulse Resp B/P (MAP) Pulse Ox O2 O2 Flow FiO2 Time Delivery Rate 01/20/19 98.0 73 18 115/67 93 00:27 (83) 01/19/19 Room Air 14:14 01/17/19 2.0 16:01 Intake and Output 01/19/19 01/19/19 01/20/19 1515:00 23:00 07:00 IntakeIntake Total 1200 ml 2650 ml 350 ml OutputOutput Total 1350 ml 2856 ml 1518 ml BalanceBalance -150 ml -206 ml -1168 ml Neck: No jvd Respiratory: clear to auscultation Cardiovascular: regular rate and rhythm Gastrointestinal: soft Extremities: No edema Results Result Diagram: 01/19/19 0435 01/19/19 0435 Medications Medication Current Medications Potassium Chloride/Dextrose/ Sod Cl 1,000 ml @ 100 mls/hr Q10H IV Last administered on 01/18/19at 08:17; Admin Dose 100 MLS/HR; Start 01/17/19 at 15:05 Tramadol HCl (Ultram) 50 mg Q4H PRN PO .PAIN 1-5 Last administered on 01/20/19at 06:24; Admin Dose 50 MG; Start 01/17/19 at 15:30 Tramadol HCl (Ultram) 100 mg Q4H PRN PO .PAIN 6-10 Last administered on 01/19/19at 08:23; Admin Dose 100 MG; Start 01/17/19 at 15:30 Hydromorphone HCl (Dilaudid) 0.2 mg Q1H PRN IV .BREAKTHROUGH PAIN; Start 01/17/19 at 15:30 Zolpidem Tartrate (Ambien) 5 mg HS PRN PO .INSOMNIA; Start 01/17/19 at 15:30 Ondansetron HCl (Zofran Inj) 4 mg Q6H PRN IV NAUSEA/VOMITING; Start 01/17/19 at 15:30 Bisacodyl (Dulcolax Supp) 10 mg DAILY PRN [place] .CONSTIPATION; Start 01/17/19 at 15:30 Docusate Sodium (Colace) 100 mg BID PO Last administered on 01/19/19at 20:37; Admin Dose 100 MG; Start 01/17/19 at 21:00 Al Hydrox/Mg Hydrox/Simethicone (Mag-Al Plus) 15 ml Q6H PRN PO .CONSTIPATION/DYSPEPSIA; Start 01/17/19 at 15:30 Acetaminophen (Tylenol Tab) 650 mg Q4H PRN PO CANO OR TEMP GREATER THAN 101.3F; Start 01/17/19 at 15:30 Carisoprodol (Soma) 350 mg TID PRN PO .MUSCLE SPASMS Last administered on 01/17/19at 20:20; Admin Dose 350 MG; Start 01/17/19 at 15:30 Phenol (Cepastat Lozenge) 1 lozenge PRN PRN [place] .SORE THROAT Last administered on 01/17/19at 20:25; Admin Dose 1 LOZENGE; Start 01/17/19 at 15:30 Diphenhydramine HCl (Benadryl) 25 mg Q6H PRN PO .ITCHING; Start 01/17/19 at 15:30 Diphenhydramine HCl (Benadryl) 25 mg Q6H PRN IV .ITCHING; Start 01/17/19 at 15:30 Naloxone HCl (Narcan) 0.2 mg Q2M PRN IV .RR 8 BREATHS/MIN OR LESS; Start 01/17/19 at 15:30 Clonidine (Catapres) 0.1 mg TID PO Last administered on 01/19/19at 20:37; Admin Dose 0.1 MG; Start 01/18/19 at 09:30 Pantoprazole (Protonix Tab) 40 mg DAILY@06 PO Last administered on 01/20/19at 06:19; Admin Dose 40 MG; Start 01/19/19 at 06:00 Bethanechol Chloride (Urecholine) 25 mg TID PO Last administered on 01/19/19at 21:52; Admin Dose 25 MG; Start 01/19/19 at 21:00 DUKE FLEMING MD Jan 20, 2019 08:08
[2019-01-20] MEDS: DOCUSATE SODIUM 100 MG CAP PO SCH (08:18)
[2019-01-20] MEDS: BETHANECHOL 25 MG TAB PO SCH (08:18)
[2019-01-20 08:29] VITALS: BP 109/74; PULSE 74; RESP 18
[2019-01-20] MEDS ORDERED: TAMSULOSIN (SR) 0.4 MG CAP PO ONE (08:30)
--- NOTE | 2019-01-20 08:42 | CONS ---
Consult Date/Type/Reason Admit Date/Time Jan 17, 2019 at 10:23 Initial Consult Date 01/18/19 Type of Consultation: Urology Reason for Consultation Urinary retention Requesting Provider: DUKE FLEMING MD Date/Time of Note DATE: 01/20/19 TIME: 08:39 Subjective Patient is feeling better and is voiding easier Objective Vitals Vital Signs Date Temp Pulse Resp B/P (MAP) Pulse Ox O2 O2 Flow FiO2 Time Delivery Rate 01/20/19 98.0 73 18 115/67 93 00:27 (83) 01/19/19 Room Air 14:14 01/17/19 2.0 16:01 Intake and Output 01/19/19 01/19/19 01/20/19 1515:00 23:00 07:00 IntakeIntake Total 1200 ml 2650 ml 350 ml OutputOutput Total 1350 ml 2856 ml 1518 ml BalanceBalance -150 ml -206 ml -1168 ml Exam During the night he has been voiding and the postvoid residual has been less than 200 mL Results/Medications Result Diagram: 01/19/19 0435 01/19/19 0435 Home Meds No Active Prescriptions or Reported Meds Medications Current Medications Tramadol HCl (Ultram) 50 mg Q4H PRN PO .PAIN 1-5 Last administered on 01/20/19at 06:24; Admin Dose 50 MG; Start 01/17/19 at 15:30 Tramadol HCl (Ultram) 100 mg Q4H PRN PO .PAIN 6-10 Last administered on 01/19/19at 08:23; Admin Dose 100 MG; Start 01/17/19 at 15:30 Hydromorphone HCl (Dilaudid) 0.2 mg Q1H PRN IV .BREAKTHROUGH PAIN; Start 01/17/19 at 15:30 Zolpidem Tartrate (Ambien) 5 mg HS PRN PO .INSOMNIA; Start 01/17/19 at 15:30 Ondansetron HCl (Zofran Inj) 4 mg Q6H PRN IV NAUSEA/VOMITING; Start 01/17/19 at 15:30 Bisacodyl (Dulcolax Supp) 10 mg DAILY PRN [place] .CONSTIPATION; Start 01/17/19 at 15:30 Docusate Sodium (Colace) 100 mg BID PO Last administered on 01/20/19at 08:18; Admin Dose 100 MG; Start 01/17/19 at 21:00 Al Hydrox/Mg Hydrox/Simethicone (Mag-Al Plus) 15 ml Q6H PRN PO .CONSTIPATION/DYSPEPSIA; Start 01/17/19 at 15:30 Acetaminophen (Tylenol Tab) 650 mg Q4H PRN PO CANO OR TEMP GREATER THAN 101.3F; Start 01/17/19 at 15:30 Carisoprodol (Soma) 350 mg TID PRN PO .MUSCLE SPASMS Last administered on 01/17/19at 20:20; Admin Dose 350 MG; Start 01/17/19 at 15:30 Phenol (Cepastat Lozenge) 1 lozenge PRN PRN MT .SORE THROAT Last administered on 01/17/19at 20:25; Admin Dose 1 LOZENGE; Start 01/17/19 at 15:30 Diphenhydramine HCl (Benadryl) 25 mg Q6H PRN PO .ITCHING; Start 01/17/19 at 15:30 Diphenhydramine HCl (Benadryl) 25 mg Q6H PRN IV .ITCHING; Start 01/17/19 at 15:30 Naloxone HCl (Narcan) 0.2 mg Q2M PRN IV .RR 8 BREATHS/MIN OR LESS; Start 01/17/19 at 15:30 Pantoprazole (Protonix Tab) 40 mg DAILY@06 PO Last administered on 01/20/19at 06:19; Admin Dose 40 MG; Start 01/19/19 at 06:00 Bethanechol Chloride (Urecholine) 25 mg TID PO Last administered on 01/20/19at 08:18; Admin Dose 25 MG; Start 01/19/19 at 21:00 Assessment/Plan Hospital Course (Demo Recall) 53-year-old male underwent surgery on his cervical spine on 01/17/2019. He was having difficulty urinating postop and was catheterized for about 650 mL. And a urological consultation was requested. On the rectal exam his prostate did not feel large. His urinary retention is most likely secondary to be postop effect of pain medication and anesthesia as well as could be from his neurological condition. Patient has been voiding better today and did not require straight catheterization . His postvoid residual has been less than 200 mL. He therefore could be discharged home on tamsulosin 0.4 mg daily and Urecholine 25 mg 3 times a day. And he could follow-up as an outpatient. I gave him my card if he wishes to come in for follow-up. MARYAM CALIX MD Jan 20, 2019 08:42
--- NOTE | 2019-01-21 07:55 | DS ---
Date/Time of Note Date/Time of Note DATE: 01/21/19 TIME: 07:54 Discharge Summary Admission/Discharge Info Admit Date/Time Jan 17, 2019 at 10:23 Discharge Date/Time Jan 20, 2019 at 12:27 Discharge Diagnosis Cervical disc replacement Patient Condition: Good Hospital Course Patient was admitted to the orthopedic barr after undergoing a cervical disc a rthroplasty. His postoperative course is uncomplicated from a surgical standpoint. However the patient had urinary retention. Urology consult was obtained. He was given tamsulosin and Urecholine. The retention significantly improved and by January 20 he was deemed stable for discharge. He will follow-up with a urologist. Home Meds No Active Prescriptions or Reported Meds Primary Care Provider Not On Staff Doctor TED KAHN MD Jan 21, 2019 07:55
== END 2019-01-20 12:27 | disposition home or self-care (01) | DRG 518 ==
LOC: REC 10:23 → MS1 17:00
PROVIDERS: ADMIT Specialist; ATTEND Specialist
PROC: 0RR30JZ Replacement of Cervical Vertebral Disc with Synthetic Substitute, Open Approach (ICD-10-PCS; principal; 2019-01-17 12:00)
DX: M50.123 Cervical disc disorder at C6-C7 level with radiculopathy (principal); M25.78 Osteophyte, vertebrae; R33.9 Retention of urine, unspecified
CPT/HCPCS: 72050; 80048; 81003; 83735; 84100; 84153; 84154; 85025; 87086; 88304; 97116; 97161; A4310; C9113; J0690; J1170; J2175; J2405; J2710; J3480